=== PATIENT | female | born 1950 | race Caucasian/White ===

== ENCOUNTER 2016-08-10 12:50 | Emergency (ER) | payer MEDICARE, MEDICAID, OTHER ==
[~2016-08-10] VITALS: Ht 144.8 cm; Wt 75.9 kg
[~2016-08-10 12:50] MED LIST: ASPI-973 PO; ISOS30TA4 PO; LISI-567 PO; NITR0.4T SL; UBID100C PO
[2016-08-10 12:57] VITALS: BP 85/45; PULSE 61; RESP 15; O2SAT 98
--- NOTE | 2016-08-10 13:14 | ED.REPORT ---
HPI-General Illness Date of Service Aug 10, 2016 ED Provider: Janae Jeffers is a pleasant 65 yo woman with history of CHF, HLD, and HTN presented from her primary care for bradycardia and hypotension, reported HR 40. She says she's been feeling lightheaded and dizzy for the past 3-4 days. She 's on Atenolol 50mg daily, Furosemide 20mg daily, isosorbide 60mg Daily, lisinopril 20mg daily. Has ECHO scheduled through next week through Dr. Summers , her earth observations chief scientist. She has history of 7 branch cardiac bypass. She denies any recent change in her medications that correlate to the onset of her lightheadedness. Since being in the ER her lightheadedness has resolved. Nursing Notes Stated Complaint: LOW BLOOD PRESSURE Chief Complaint: General Complaint Allergies: Coded Allergies: No Known Allergies (Verified Allergy, Unknown, 08/10/16) Scheduled Aspirin (Aspirin) 81 Mg Tablet.dr 81 MG PO DAILY Isosorbide MN ER (Isosorbide MN ER) 30 Mg Tab.er.24h 30 MG PO DAILY Lisinopril (Lisinopril) 20 Mg Tablet 20 MG PO DAILY Ubidecarenone (Coenzyme Q10) 100 Mg Capsule 100 MG PO DAILY Scheduled PRN Nitroglycerin SL (Nitrostat) 0.4 Mg Tab.subl 0.4 MG SL Q5MIN PRN PRN For Chest Pain General Time Seen by MD: 13:13 Chief Complaint Other (bradycardia) Sudden in Onset?: No Past Medical History Past Medical History HLD HTN CHF CAD Past Surgical History Cardiac bypass 1995. Trauma repair to Rt hand Tubal ligation Family History Mother: CHF CAD Maternal uncles: CHF, CAD. brothers - Multiple MIs Father: "cancer" and COPD. Smoking History Former Smoker (6 months in the 80s.) Social History Alcohol Use: "Social" Drug Use: THC (Long time ago. ) Other Social History: Lives with children Review of Systems Complete sys rev & neg: except as marked. Physical Exam General: Laying in bed, no apparent distress. HEENT: Normocephalic, atraumatic, EOMI grossly, mucous membranes moist, conjunctiva pink, neck is supple, no JVD Cardiovascular: Irregular rhythm, unable to appreciate any clicks murmurs or rubs. Peripheral pulses 2/4 radial. Pulmonary: Clear to auscultation bilaterally, no W/R/R. Abdominal: Soft to palpation, bowel sounds present 4, no hepatosplenomegaly. Negative rebound. Extremities: Compression stockings in place bilaterally, left lower extremity appears to have mildly larger diameter than right lower extremity, patient states this is normal. Neuro: Patellar reflex 2/4 equal bilaterally, sensation intact upper and lower extremities. MSK: Strength 5 out of 5 upper and lower extremities equal bilaterally, able to move extremities on her own volition Psych: A and O 4, appropriate affect and responses. Vital Signs Vital Signs Date Time Temp Pulse Resp B/P Pulse Ox O2 Delivery O2 Flow Rate FiO2 08/10/16 15:19 36.3 67 18 96/55 97 Room Air 08/10/16 15:06 67 18 96/55 97 Room Air 08/10/16 12:57 36.1 61 15 85/45 98 Room Air Initial VS: Reviewed Interpretation & Diagnostics Lab Results Interpretation Result Diagram: 08/10/16 1315 08/10/16 1315 Test 08/10/16 13:15 White Blood Count 6.3th/mm3 (3.8-10.1) Red Blood Count 4.44mil/mm3 (3.90-5.20) Hemoglobin 12.9g/dL (12.0-15.6) Hematocrit 38.9% (35.0-46.0) Mean Corpuscular Volume 87.6fL (81-100) Mean Corpuscular Hemoglobin 29.1pg (27.0-35.0) Mean Corpuscular Hemoglobin Concent 33.2% (32.0-37.0) Red Cell Distribution Width 12.9% (12.3-15.4) Platelet Count 175bil/L (150-400) Neutrophils (%) (Auto) 46.2% (40-74) Lymphocytes (%) (Auto) 42.3% (14-46) Monocytes (%) (Auto) 8.9% (4-12) Eosinophils (%) (Auto) 1.9% (0-5) Basophils (%) (Auto) 0.5% (0-3) Sodium Level 135mEq/L (134-144) Potassium Level 4.4mEq/L (3.5-5.2) Chloride Level 98mEq/L (97-108) Carbon Dioxide Level 22mmol/L (18-29) Blood Urea Nitrogen 29mg/dL (8-27) Creatinine 1.25mg/dL (0.57-1.00) Estimat Glomerular Filtration Rate 61mL/min (>59) Glucose Level 115mg/dL (60-99) Calcium Level 9.0mg/dL (8.5-10.1) Magnesium Level 1.8mg/dL (1.6-2.6) Total Bilirubin 0.4mg/dL (0.0-1.2) Aspartate Amino Transf (AST/SGOT) 58U/L (0-50) Alanine Aminotransferase (ALT/SGPT) 38U/L (0-32) Alkaline Phosphatase 79U/L (25-165) Troponin T < 0.010ug/L (0.0-0.011) Total Protein 6.7g/dL (6.4-8.4) Albumin 3.5g/dL (3.4-5.0) Hold Bradford Top Tube Received (Received) Lab Results Interpretation: Prerenal azotemia, dehydration, transaminitis most likely secondary to hepatic congestion due to hypotension. ECG Interpretation ECG Interpretation: Rate 78, normal axis, sinus rhythm W[place] 178, QTC 535, "Supraventricular bigeminy, right bundle branch block." Re-Eval/Medical Decision Med Decision/Clinical Course Patient was evaluated in the emergency department, her heart rate had increased from 46 and maintained itself in the 70s and 80s. Pressure increased into the 80s, one pressure in the 90s, mean arterial pressure was preserved throughout her ER visit. Hematology was negative, chemistry showed prerenal azotemia and transaminitis, given the clinical picture this is most likely dehydration, patient said she only drank one glass of tea today and that is all she had as far as fluid intake since 9 AM this morning. Spoke with Dr. Summers he suggested she decrease her atenolol and lisinopril, and follow-through with her preplanned Holter monitor placement and echocardiogram to be performed later this week. This was discussed with the patient, she stated understanding and agreement. She was given a little over 500 mL of normal saline IV, blood pressure increased to 90s to 100. Consultation : Referral / Consult Name: John Summers MD Consulted With: Warehouse Packer: Will see in office, Agrees with plan Discharge & Departure Primary Impression: Bradycardia Additional Impressions: Hypotension Hypotension type: hypotension due to drug Qualified Code: I95.2 - Hypotension due to drugs Fluid deficit Disposition: Home Discharge Condition All VS Reviewed: Yes Condition: Stable Patient Instructions: Hypotension (ED) Additional Instructions: Thank you for entrusting us with your care with us today Dr. Summers has given instructions for change in your medications: Stop taking atenolol 50 mg daily. Stop taking lisinopril 20 mg daily. Start taking atenolol 25 mg daily. Start taking lisinopril 10 mg daily. If you experience any chest pain, shortness of breath, lightheadedness, dizziness please return to the emergency department or call 911 if necessary. Please keep a watch on your blood pressure at home, if it is consistently low, the top number less than 90, please contact Dr. Summers's office. Keep your appointment in the upcoming days to have a Holter monitor placed and echocardiogram performed. These have your lab work performed tomorrow as you have planned, recommend you do it early in the morning and take your medications shortly after. Monitor of increased weight gain, more than 5lbs in one day or 9lbs in one week. If this occurs please consider returning to the ED or contacting Dr. Summers's office. Please follow up with your primary care physician and Dr. Summers accordingly. Referrals: Tawana Gomez MD (PCP) EDSupervising Provider for APC: Pedro Boateng MD Attending Statement I discussed patient with resident Yasir. I evaluated patient independently and agree with plan as above. In brief 65-year-old female history of hypertension sent over by primary doctor for low blood pressure and dizziness for several days. She reportedly had a heart rate in the 40s and her primary doctor's office. On arrival her heart rate was in the 60s and her symptoms had resolved. Her blood pressure was initially 85/45. She was given a gentle fluid bolus with systolic blood pressure repeat in the 100s. Her symptoms resolved. Suspect likely due to medications. She has no sign symptoms infection or sepsis. Discussed with her earth observations chief scientist who recommended medication adjustments and follow-up as an outpatient as above. Discussed the patient and she agrees with plan. Return precautions given. copies to: John Summers MD; Tawana Gomez MD, Ben M MD Aug 10, 2016 13:14 Jaxson Cooley DO Aug 10, 2016 13:34
[2016-08-10 13:49] LABS: BASOPHILS % (AUTO) 0.5 % (0-3); EOSINOPHILS % (AUTO) 1.9 % (0-5); MONOCYTES % (AUTO) 8.9 % (4-12); Mean Corpuscular Hemoglobin 29.1 pg (27.0-35.0); Mean Corpuscular Volume 87.6 fL (81-100); NEUTROPHILS % (AUTO) 46.2 % (40-74); Platelet Count 175 bil/L (150-400)
[2016-08-10] MEDS ORDERED: 0.9% Sodium Chloride 500 ML IV ONE (13:55)
[2016-08-10 14:09] LABS: TROPONIN T < 0.010 ug/L (0.0-0.011)
[2016-08-10 14:15] LABS: Magnesium 1.8 mg/dL (1.6-2.6)
[2016-08-10 15:06] VITALS: BP 96/55; PULSE 67; RESP 18; O2SAT 97
[2016-08-10 15:19] VITALS: BP 96/55; PULSE 67; RESP 18; O2SAT 97
== END 2016-08-10 15:21 | disposition home or self-care (01) ==
LOC: SED 12:50
DX: R00.1 Bradycardia, unspecified (principal); I95.9 Hypotension, unspecified; E86.9 Volume depletion, unspecified; I11.0 Hypertensive heart disease with heart failure; I25.10 Atherosclerotic heart disease of native coronary artery without angina pectoris; Z79.82 Long term (current) use of aspirin; Z87.891 Personal history of nicotine dependence
CPT/HCPCS: 80053; 83735; 84484; 85025; 93005; 99285; J7040